=== PATIENT | female | born 1995 | race Caucasian/White ===

== ENCOUNTER 2017-05-21 23:09 | Inpatient (IN) ==
[2017-05-22] MEDS ORDERED: Ibuprofen 600 MG TABLET PO PRN (00:33)
[2017-05-22] MEDS ORDERED: Measles/Mumps/Rubella Vacc 0.5 ML VIAL SQ PRN (00:33)
[2017-05-22] MEDS ORDERED: Acetaminophen 325 MG TABLET PO PRN (00:33)
[2017-05-22] MEDS ORDERED: Benzocaine/Menthol 56 GM AEROSOL SPRAY TP PRN (00:33)
--- NOTE | 2017-05-22 00:53 | OB/GYN History & Physical ---
Date of Encounter: 05/22/17 Time of Encounter: 00:44 Assessment and Plan (1) No care in current Current visit: Yes Status: Acute Qualifiers: Trimester: third trimester Qualified Code(s): O09.33 - Supervision of with insufficient care, third trimester (2) Vaginal delivery Current visit: No Status: Acute admit to care begin routine postpartm care draw no care labs History of Present Illness Chief complaint: Delivery at home HPI: Ms. Harman is a 21 year old female presented to [facility] after delivery at home in toilet. Pt states she did not know she was . MP 2016. Pt states she has had monthly menses and never felt moved, with no other signs of . Pt states she did not feel well earlier today and felt like she might be starting her period, she then had abdominal pain and thought she might be passing a kidney stone (history of stones). Pt then went to rest room and felt a gush of fluid and thought she was bleeding from menses and went to pee in the toilet and the next thing she heard was a baby cry. She reached down,felt a baby face and called for help. FOB came into room and stated was in the toilet feet first with the head above water. The umbilical cord snapped as FOB was removing infant from toilet. FOB used fingers to clamp umbilical cord, then grandmother assisted with tying off cord with string. 911 was called and patient was transfered to [facility]. Placenta delivered at [facility]. Pt was given IM pitocin [facility] per RN report. Pt states does use THC and percocet, medical history only positive for recent dental infection and kidney stones. Blood type is O+ from previous screen in prior . Past Med Surg Social Fam HX - Past Medical History Source: patient Medical history: kidney stones, other (dental abcess ) Psychiatric history: no psych history - Past Surgical History Surgical History: no surgical history - Social History Smoking Status: Current every day smoker Smokeless Tobacco Status: No Alcohol use: none Drug use: none - Family History Mother Hx Family Cardiac Disorders: Yes (hypertension) Obstetrical History - Pregnancies : 3 Para: 3 Term: 3 : 0 Ab's: 0 Livin Medications and Allergies No Known Home Drugs 11/26/16 [History] 3 Allergy/AdvReac Type Severity Reaction Status Date / Time No Known Allergies Allergy Verified 11/26/16 11:47 Exam - Constitutional Constitutional: well developed, well nourished, no acute distress, average body habitus - Neck Neck exam: full ROM - Lungs Respiratory exam: CTAB - Cardiovascular Cardiovascular exam: RRR - Abdomen Abdomen: Present: bowel sounds normal - Extremities Extremities exam: normal capillary refill, normal inspection - Vagina Vagina: Present: normal moisture - Uterus Uterus exam: Present: normal size, normal contour - Anus/Rectum Anus/Rectum: Present: normal perianal skin - Comments Comments: Perineum with small first degree tear, homeostatic and left unrepaired. Results All other labs normal. - VTE Reasons for not Prescribing Prophylaxis: Treatment not Indicated - Low risk for VTE
[2017-05-22 03:21] LABS: Basophils % 0.1 %; Eosinophils % 0.2 %; Hematocrit 35.2 % (35.3-44.9); Hemoglobin 11.5 g/dL (11.5-15.4); Immature Granulocytes % 0.5 % (0-4); Immature Platelets 2.4 % (1.1-6.1); Lymphocytes # 2.7 K/mcL (0.6-4.6); Lymphocytes % 13.9 %; Mean Corpuscular HGB Conc 32.7 g/dL (31.6-35.5); Mean Corpuscular Volume 85.6 fL (83.0-100.0); Mean Platelet Volume 9.6 fL (9.4-12.4); Monocytes # 1.6 K/mcL (0.0-1.3); Monocytes % 8.3 %; Platelet Count 296 K/mcL (140-400); Red Blood Count 4.11 M/mcL (3.82-4.97); Red Cell Distribution Width 13.3 % (11.5-14.5)
[2017-05-22 05:20] LABS: HIV-1&2 Antibody & p24 Ag Nonreactive (Nonreactive); Hepatitis B Surface Antigen Nonreactive (Nonreactive)
[2017-05-22 06:26] LABS: Amphetamine Screen,Urine Positive ng/mL (Cutoff=1000); Barbiturate Screen,Urine Negative ng/mL (Cutoff=200); Benzodiazepines Screen,Urine Negative ng/mL (Cutoff=200); Cannabinoid Screen,Urine Positive ng/mL (Cutoff = 50); Cocaine Screen,Urine Negative ng/mL (Cutoff= 300); Opiate Screen,Urine Negative ng/mL (Cutoff=300)
[2017-05-22 06:27] LABS: Phencyclidine Screen,Urine Negative ng/mL (Cutoff=25)
[2017-05-22] MEDS ORDERED: Prenatal Vit/FA 1 EACH TABLET PO SCH (09:00)
--- NOTE | 2017-05-22 11:06 | OB/GYN Progress Note ---
Date of Encounter: 05/22/17 Time of Encounter: 11:04 - Assessment and Plan (1) Vaginal delivery Current Visit: No Status: Acute Pt meeting PPD1 milestones. Anticipate discharge home PPD2. Subjective - Subjective Interval history: Pt reports intermittent cramping today. No other complaints. Patient reports: appetite normal, voiding normally, pain well controlled, ambulating normally [place]: doing well, in NICU, bottle feeding Objective - Latest Vital Signs Latest vital signs: Vital Signs Temp Pulse Resp BP Pulse Ox 05/22/17 07:55 98.1 F 100 16 112/77 99 05/22/17 04:45 97.2 F L 101 16 112/70 97 05/22/17 04:28 97.3 F L 83 16 119/76 98 05/22/17 02:20 97.8 F 76 16 133/89 98 Intake and Output 05/21/17 05/22/17 05/22/17 23:59 07:59 15:59 Intake Total 150 / 150 Output Total 200 / 200 Balance -50 / -50 Intake: Oral 150 / 150 Output: Urine 200 / 200 Other: Stool Characteristics Normal for Patient Weight 54.431 kg Patient Weight 05/22/17 23:59 Weight 54.431 kg - Exam Lungs: bilateral: normal Chest: Normal S1, Normal S2 Extremities: Present: normal Abdomen: Present: soft Uterus: Present: firm - Labs Labs: Laboratory Results - last 24 hr 05/22/17 05/22/17 05/22/17 01:30 01:45 01:45 WBC 19.5 H RBC 4.11 Hgb 11.5 Hct 35.2 L MCV 85.6 MCH 28.0 MCHC 32.7 RDW 13.3 Plt Count 296 MPV 9.6 Immature Gran % 0.5 Seg Neutrophils % 77.0 Lymphocytes % 13.9 Monocytes % 8.3 Eosinophils % 0.2 Basophils % 0.1 Neutrophils # 15.0 H Lymphocytes # 2.7 Monocytes # 1.6 H Eosinophils # 0.0 Basophils # 0.0 Immature Plt Fraction 2.4 Urine Opiates Screen Negative Ur Barbiturates Screen Negative Ur Phencyclidine Scrn Negative Ur Amphetamines Screen Positive H U Benzodiazepines Scrn Negative Urine Cocaine Screen Negative U Marijuana (THC) Screen Positive H Hep Bs Antigen Nonreactive HIV Ag/Ab Combo Qual Nonreactive
--- NOTE | 2017-05-22 20:34 | Discharge Summary ---
Date of Encounter: 05/22/17 Time of Encounter: 20:32 - Discharge Diagnosis (1) Vaginal delivery Priority: Primary Status: Acute Comments: Pt meeting all milestones and desires discharge to guest this evening. - Discharge Medications Prescriptions: Ibuprofen [Motrin] 600 mg PO Q6HR PRN #60 tab PRN Reason: Cramping Docusate [Colace] 100 mg PO BID #60 Vit/FA 1 each PO DAILY #30 tab Home Medications: No Known Home Drugs 11/26/16 [History] Benzocaine/Menthol Reagan [Dermoplast Reagan] 1 appl TP QID PRN aerosol 05/22/17 [Rx] Docusate [Colace] 100 mg PO BID #60 05/22/17 [Rx] Ibuprofen [Motrin] 600 mg PO Q6HR PRN #60 tab 05/22/17 [Rx] Vit/FA 1 each PO DAILY #30 tab 05/22/17 [Rx] Allergies/Adverse Reactions: 3 Allergy/AdvReac Type Severity Reaction Status Date / Time Amoxicillin [From Augmentin] Allergy Hives Verified 05/22/17 14:20 clavulanic acid Allergy Hives Verified 05/22/17 14:20 [From Augmentin] Data Procedures and tests throughout hospitalization: Laboratory Tests 05/22/17 05/22/17 05/22/17 01:30 01:45 01:45 WBC 19.5 H RBC 4.11 Hgb 11.5 Hct 35.2 L MCV 85.6 MCH 28.0 MCHC 32.7 RDW 13.3 Plt Count 296 MPV 9.6 Immature Gran % 0.5 Seg Neutrophils % 77.0 Lymphocytes % 13.9 Monocytes % 8.3 Eosinophils % 0.2 Basophils % 0.1 Neutrophils # 15.0 H Lymphocytes # 2.7 Monocytes # 1.6 H Eosinophils # 0.0 Basophils # 0.0 Immature Plt Fraction 2.4 Urine Opiates Screen Negative Ur Barbiturates Screen Negative Ur Phencyclidine Scrn Negative Ur Amphetamines Screen Positive H U Benzodiazepines Scrn Negative Urine Cocaine Screen Negative U Marijuana (THC) Screen Positive H Hep Bs Antigen Nonreactive HIV Ag/Ab Combo Qual Nonreactive Labs on day of discharge: Labs from last 24 hours 05/22/17 05/22/17 05/22/17 01:45 01:45 01:30 WBC 19.5 H RBC 4.11 Hgb 11.5 Hct 35.2 L MCV 85.6 MCH 28.0 MCHC 32.7 RDW 13.3 Plt Count 296 MPV 9.6 Immature Gran % 0.5 Seg Neutrophils % 77.0 Lymphocytes % 13.9 Monocytes % 8.3 Eosinophils % 0.2 Basophils % 0.1 Neutrophils # 15.0 H Lymphocytes # 2.7 Monocytes # 1.6 H Eosinophils # 0.0 Basophils # 0.0 Immature Plt Fraction 2.4 Urine Opiates Screen Negative Ur Barbiturates Screen Negative Ur Phencyclidine Scrn Negative Ur Amphetamines Screen Positive H U Benzodiazepines Scrn Negative Urine Cocaine Screen Negative U Marijuana (THC) Screen Positive H Hep Bs Antigen Nonreactive HIV Ag/Ab Combo Qual Nonreactive Date of admission: 05/21/17 23:09 Primary care physician: PCP JORY Consults: 05/22/17 00:33 Consult to [employer] Worker [CONS] Routine Reason for SW Consult: Did not know she was . Had infant in toilet at home Discharging clinician: Marcelina Garcia Anticipated date of discharge: 05/22/17 - Patient Status Disposition: Home, Self-Care Condition: Good Functional capacity at discharge: independent ambulation Overall status at discharge: patient is progressing back to baseline - Discharge Instructions Follow Up With: NONE,PCP [Primary Care Provider] - Zaynab Gold DO [Partnered Physician] - - Diet and Activity Activity: increase activity as tolerated Diet: advance to your usual diet Hospital Course Reason for admission: other (s/p vaginal delivery at home) Laceration: none Other procedures: none complications: none Hospital course: Pt presented to L&D s/p vaginal delivery at home. She had an uncomplicated course and requested discharge to guest at 24 hours . in NICU for [facility] monitoring. Time Attestation: Total time spent providing and/or coordinating discharge services: Time Spent: Less than 30 minutes Exam - Constitutional Vitals: Temp Pulse Resp BP Pulse Ox 98.4 F 91 16 106/69 97 05/22/17 15:00 05/22/17 15:00 05/22/17 15:10 05/22/17 15:00 05/22/17 15:00 - GI/Abdominal Additional comments: see previous exam
[2017-05-22 22:20] VITALS: BP 128/84
[2017-05-23 11:11] LABS: Varicella Zoster IgG Antibody Positive
[2017-05-23 11:33] LABS: Rubella IgG Antibody POSITIVE (POSITIVE)
== END 2017-05-22 21:30 | disposition home or self-care (01) | DRG 561 ==
LOC: 1NENULAB 23:09 → 1NENUOBS 05-22 05:03
PROVIDERS: ADMIT Advanced Practice Midwife; ATTEND Advanced Practice Midwife